=== PATIENT | male | born 1985 | race African-American/Black ===

== ENCOUNTER 2020-04-30 01:53 | Emergency (ER) | payer SELFPAY ==
[~2020-04-30] VITALS: Ht 170.2 cm; Wt 73.0 kg
[2020-04-30] MEDS ORDERED: SODIUM CHLORIDE 0.9% 1,000 ML IV ONE (02:14)
[2020-04-30] MEDS ORDERED: KETOROLAC 30MG/ML VIAL IV STA (02:14)
[2020-04-30] MEDS ORDERED: DEXAMETHASONE 4MG/ML 1ML VIAL IV ONE (02:15)
[2020-04-30] MEDS ORDERED: CLINDAMYCIN 600 MG in DEXTROSE 5% WATER 50 ML IV ONE (02:15)
[2020-04-30] MEDS ORDERED: ACETAMINOPHEN 325MG TABLET PO ONE (02:15)
[2020-04-30 04:13] LABS: HEMATOCRIT. 43.5 % (42.0-52.0); HEMOGLOBIN. 14.2 g/dL (14.0-18.0); MEAN PLATELET VOLUME 9.6 fl (7.4-10.4); PLATELET 175 x1000/uL (130-400); RED BLOOD CELL COUNT 5.44 mill/uL (4.7-6.1); RED CELL DISTRIBUTION WIDTH 13.7 % (11.6-14.6)
[2020-04-30 04:14] LABS: CHLORIDE 107 mEq/L (98-107)
[2020-04-30 04:52] LABS: CLARITY URINE CLEAR (CLEAR); COLOR URINE YELLOW (YELLOW); KETONES URINE NEGATIVE (NEGATIVE); LEUKOCYTE ESTERASE URINE NEGATIVE (NEGATIVE); NITRITE URINE NEGATIVE (NEGATIVE); OCCULT BLOOD URINE NEGATIVE (NEGATIVE); PROTEIN URINE 1+ (NEGATIVE); SPECIFIC GRAVITY URINE 1.017 (1.005-1.030)
[2020-04-30] MEDS ORDERED: PENICILLIN G BENZATHINE 1,200,000 UNITS/2ML SYR IM ONE (05:30)
[2020-04-30] MEDS ORDERED: HYDROCODONE/APAP 7.5/325MG 1 TAB TABLET PO ONE (05:30)
[2020-04-30 05:49] LABS: PLATELET ESTIMATE NORMAL
[2020-04-30 06:03] VITALS: BP 139/63
[2020-04-30] MEDS ORDERED: IOHEXOL-300 100 ML BOTTLE ONE (06:21)
== END 2020-04-30 06:59 | disposition home or self-care (01) ==
LOC: ER 01:53
DX: J03.90 Acute tonsillitis, unspecified (principal); J36 Peritonsillar abscess; R59.0 Localized enlarged lymph nodes; J35.1 Hypertrophy of tonsils; I49.9 Cardiac arrhythmia, unspecified; Z87.891 Personal history of nicotine dependence
CPT/HCPCS: 36415; 70491; 71045; 76705; 80053; 81003; 83690; 85025; 93005; 96365; 96375; 99285; J0561; J1100; J1885; J3490; J7030; J7060; Q9967; Z7610